=== PATIENT | female | born 2000 | race Caucasian/White ===

== ENCOUNTER 2024-08-06 23:24 | Emergency (ER) | payer BC ==
[~2024-08-06] VITALS: Ht 162.6 cm; Wt 55.0 kg
[2024-08-06 23:39] VITALS: O2SAT 99
[2024-08-06] MEDS ORDERED: KETOROLAC 30MG/ML VIAL IM STA (23:40)
[2024-08-07 00:33] LABS: BASOPHILS % 0.6 % (0.0-2.0); EOSINOPHILS % 1.1 % (0.0-5.0); HEMATOCRIT. 39.5 % (36.0-48.0); HEMOGLOBIN. 13.2 g/dL (12.0-16.0); LYMPHOCYTES % 31.5 % (20.0-50.0); MEAN CORPUSCULAR HEMOGLOBIN 30.6 pg (28.0-32.0); MEAN CORPUSCULAR HGB CONC 33.4 g/dL (31.0-37.0); MEAN CORPUSCULAR VOLUME 91.5 fL (81.0-99.0); MEAN PLATELET VOLUME 9.1 fl (7.4-10.4); MONOCYTES % 9.5 % (2.0-8.0); NEUTROPHILS % 57.3 % (40.0-76.0); PLATELET 321 x1000/uL (130-400); RED BLOOD CELL COUNT 4.31 mill/uL (4.2-5.4); WHITE BLOOD COUNT 7.3 x1000/uL (4.5-11.0)
[2024-08-07 00:36] LABS: CHLORIDE 107 mEq/L (98-107); POTASSIUM 4.5 mEq/L (3.5-5.1); SODIUM 141 mEq/L (136-145)
[2024-08-07 00:37] LABS: CARBON DIOXIDE 27 mEq/L (21-32)
[2024-08-07 00:38] LABS: CALCIUM 9.8 mg/dL (8.7-10.4)
[2024-08-07 00:42] LABS: CREATININE 0.7 mg/dL (0.6-1.0); GLUCOSE 93 mg/dL (70-105)
[2024-08-07 00:43] LABS: UREA NITROGEN BLOOD 12 mg/dL (9-23)
[2024-08-07 00:44] LABS: ALANINE AMINOTRANSFERASE < 7 IU/L (10-49); ALBUMIN 4.6 g/dL (3.2-4.8); ASPARTATE AMINOTRANSFERASE 17 IU/L (<34)
[2024-08-07 00:45] LABS: BILIRUBIN TOTAL 0.2 mg/dL (0.1-1.0); PROTEIN TOTAL 7.3 g/dL (6.0-8.3)
[2024-08-07] MEDS: KETOROLAC 30MG/ML VIAL IM NR (02:01)
[2024-08-07 02:13] LABS: CLARITY URINE CLEAR (CLEAR); COLOR URINE YELLOW (YELLOW); GLUCOSE URINE NEGATIVE (NEGATIVE); KETONES URINE TRACE (NEGATIVE); LEUKOCYTE ESTERASE URINE TRACE (NEGATIVE); NITRITE URINE NEGATIVE (NEGATIVE); OCCULT BLOOD URINE TRACE (NEGATIVE); PH URINE 5.5 (4.5-8.0); PROTEIN URINE NEGATIVE (NEGATIVE); SPECIFIC GRAVITY URINE 1.016 (1.005-1.030); UROBILINOGEN URINE 0.2 E.U./dL (0.2-1.0)
[2024-08-07 02:57] LABS: BACTERIA URINE NONE SEEN; RBC URINE 0-2 /hpf (0-2); SQUAMOUS EPITHELIAL CELL URINE FEW /lpf (RARE/1+)
[2024-08-07] MEDS ORDERED: NITR-87 MT (03:15)
[2024-08-07 03:47] VITALS: BP 109/68; PULSE 90; RESP 20; TEMP 36.94740; O2SAT 99
== END 2024-08-07 03:49 | disposition home or self-care (01) ==
LOC: ER 23:24
DX: N39.0 Urinary tract infection, site not specified (principal)
CPT/HCPCS: 99285; 80053; 81025; 85025; 36415; 74176; 76830; 76856; 81003; 96372; J1885